=== PATIENT | female | born 1980 | race Caucasian/White ===

== ENCOUNTER 2017-06-19 21:37 | Observation (INO) | payer MEDICAID ==
[~2017-06-19] VITALS: Ht 157.5 cm; Wt 91.7 kg
[~2017-06-19 21:37] MED LIST: AMBIEN10 MG PO; AMBIEN5 M1 PO; AMOXICILLIN; ASPIR 8181 MG PO; ATARAX25 MG PO; ATARAX50 MG PO; ATIVAN0.5 MG PO; ATIVAN1 M2 PO; ATIVAN1 MG PO; B-1100 MG PO; BACITRACIN28.4 G1 TP; BACTRIM DS TABL1 TAB PO; BACTRIM DS1 TA1 PO; BACTRIM1 TAB PO; BENADRYL25 MG/TA1 PO; BENTYL10 MG PO; CARAFATE1 G PO; CATAPRES0.1 MG PO; CELEXA20 MG PO; CHLORHEXIDINE 4% TOP; CIPRO250 M2 PO; CLONIDINE HCL0.1 MG PO; COLACE100 MG PO; CORTISPORIN EAR10 M LEFT EAR; CVS STOOL SOFTE PO; CYCLOBENZAPRINE10 M1 PO; CYMBALTA30 MG PO; DICLOFENAC SODI75 M2 PO; DILAUDID2 MG PO; DILAUDID4 MG PO; DULOXETINE HCL30 M1 PO; DURAGESIC1 PATCH .7 TOP; EFFEXOR75 MG PO; ELTA TP; ERGOCALCIF50000 UNIT PO; EUCERIN CREME60 GM TP; FEOSOL1 TAB PO; FLEXERIL10 MG PO; FLEXERIL5 MG PO; FOLIC ACID1 MG PO; HALDOL0.5 MG/TAB PO; HALDOL1 MG/TA1 PO; HYDROCODON-ACE1 EA17 PO; HYDROCODONE/APA1 TA PO; HYDROCODONE/APA1 TAB PO; HYDROCORTISON28.4 G2 TP; HYDROXYZINE; HYDROXYZINE HCL25 MG PO; IBUPROFEN600 M1 PO; IBUPROFEN800 MG PO; IRON SUPPLEMEN325 MG PO; LAMICTAL100 M2 PO; LAMICTAL200 M2 PO; LIBRIUM25 MG PO; LITHIUM; LITHIUM CARBON300 MG PO; LITHIUM CARBON450 MG PO; LITHIUM CI8 MEQ/5 ML PO; LITHIUM CITRATE PO; LITHIUM PO; LORTAB 10/500 T1 TAB PO; LORTAB 10/5001 EA PO; MACROBID 100 M100 M1 PO; MAG-AL PLUS XS30 ML PO; MAGIC MOUTHWAS; MAGIC MOUTHWASH; MINIPRESS1 MG PO; MIRALAX17 G1 PO; MIRALAX17 GM PO; MULTI-VITAMIN1 EAC1 PO; MULTIVITAMIN W/1 CAP PO; NEURONTIN100 MG PO; NEURONTIN300 M1 PO; NEURONTIN300 MG PO; NEURONTIN600 MG PO; NEXIUM20 MG PO; NICODERM21 MG/PATC TD; NO MEDICATIONS; NORCO 10/325 TA1 TAB PO; NORCO 10/3251 TA1 PO; NORCO 10/3251 TAB PO; NORCO 5-325 TA1 EACH PO; NORCO 5/325 TAB1 TAB PO; NORCO 5/3251 TAB NG; NORCO 5/3251 TAB PO; OMEPRAZOLE20 M2 PO; OMEPRAZOLE20 M3 PO; OMEPRAZOLE40 MG PO; OXYCODONE HCL5 MG PO; OXYCONTIN; PAXIL20 M1 PO; PAXIL40 M1 PO; PEPCID20 MG PO; PERCOCET 5-3251 EACH PO; PERCOCET 5/3251 TAB PO; PHENERGAN LIQUID PO; PHENERGAN PR; PHENERGAN12.5 MG PO; PHENERGAN25 M1 PO; PHENERGAN25 M2 RC; PHENERGAN25 M4 RC; PHENERGAN25 MG PO; PHENERGAN25 MG/SUP1 PR; PHENERGAN25 MG/SUPP RC; PRAZOSIN HCL2 M2 PO; PRENATAL1 EACH PO; PRILOSEC40 MG PO; PROMETHAZI6.25 MG/5 PO; PROMETHAZINE HC25 M3 PO; PROMETHAZINE25 MG PO; PROTONIX40 MG PO; PROZAC40 MG PO; REMERON15 MG PO; SENOKOT8.6 MG PO; SEROQUEL XR50 MG/TAB PO; SEROQUEL100 MG PO; SEROQUEL200 M1 PO; SEROQUEL25 MG PO; SOMA350 MG PO; SULFAMYLON SOL250 M1 EXT; SULFAMYLON50 G/PKT TP; SUP PR; TRAZODONE HCL100 M1 PO; TRAZODONE HCL50 MG PO; TYLENOL325 MG PO; VALIUM5 MG PO; VITAMIN D50000 UNIT PO; ZANTAC150 MG PO; ZEGERID 40 MG P1 PKT PO; ZOFRAN4 M2 PO; [UNRECOGNIZED DRUG - OTHER] PO; [UNRECOGNIZED DRUG - REMARK]
[2017-06-19 22:17] LABS: URINE APPEARANCE CLOUDY; URINE BILIRUBIN NEGATIVE (NEG); URINE BLOOD LARGE (NEG); URINE COLOR YELLOW; URINE GLUCOSE (UA) NEGATIVE (NEG); URINE KETONE NEGATIVE (NEG); URINE LEUKOCYTE ESTERASE POSITIVE (NEG); URINE NITRITE NEGATIVE (NEG); URINE PROTEIN LARGE (NEG); URINE SPECIFIC GRAVITY 1.015 (1.003-1.030)
[2017-06-19 22:23] LABS: URINE RBC 80-100 /[HPF] (0-5)
[2017-06-19 22:24] LABS: URINE WBC 20-30 /[HPF] (0-5)
[2017-06-19 22:30] LABS: BASO % 0.2 % (0-2); EOS % 3.4 % (0-7); EOSINOPHIL ABSOLUTE COUNT 0.3 tho/cmm (0.0-0.7); HCT-HEMATOCRIT 41.7 % (34.0-49.0); HGB-HEMOGLOBIN 14.2 gm/dl (12.0-15.5); IMMATURE GRANULOCYTES ABSOLUTE 0.01 tho/cmm (0-0.03); IMMATURE GRANULOCYTES PERCENT 0.1 % (0-0.3); LYMPH % 30.4 % (20-45); LYMPH ABSOLUTE COUNT 2.8 tho/cmm (0.8-4.5); MCH (MEAN CORPUSCULAR HGB) 30.7 pg (28.0-32.0); MCHC MEAN CORPUSCULAR HGB CONC 34.1 % (32.0-36.0); MCV (MEAN CELL VOLUME) 90.1 fl (82.0-96.0); MEAN PLATELET VOLUME 9.7 cmc (9.4-12.4); MONO % 6.7 % (0-12); MONOCYTE ABSOLUTE COUNT 0.6 tho/cmm (0.0-1.2); NEUTROPHIL ABSOLUTE COUNT 5.4 tho/cmm (1.6-8.0); NEUTROPHIL-AUTOMATED 5.4 tho/cmm (1.6-8.0); NEUTROPHILS % 59.2 % (40-80); PLATELET COUNT 224 tho/cmm (150-450); RED BLOOD COUNT 4.63 mil/cmm (4.00-5.20); RED CELL DISTRIBUTION WIDTH 13.5 % (12.4-16.4); WHITE BLOOD COUNT 9.1 tho/cmm (4.0-10.0)
[2017-06-19 22:39] LABS: PREGNANCY-SERUM NEGATIVE (NEGATIVE)
[2017-06-19 22:42] LABS: ANION GAP 10 mmol/L (0-20); BLOOD UREA NITROGEN 23 mg/dl (6-24); CALCIUM 9.1 mg/dl (8.5-10.5); CARBON DIOXIDE-VENOUS 25 mmol/L (22-32); CHLORIDE 106 mmol/l (96-110); CREATININE 1.61 mg/dl (0.50-1.10); GLUCOSE 110 mg/dL (70-110); LIPASE 254 U/L (73-393); SODIUM 137 mmol/L (135-145); eGFR VALUE FOR BLACK 47 mL/Min
[2017-06-19 22:43] LABS: POTASSIUM 4.1 mmol/L (3.7-5.1)
[2017-06-20] MEDS ORDERED: HYDROCODON-ACE1 EA16 PO (01:54)
[2017-06-20 05:25] LABS: BASO % 0.1 % (0-2); EOS % 3.7 % (0-7); EOSINOPHIL ABSOLUTE COUNT 0.3 tho/cmm (0.0-0.7); HCT-HEMATOCRIT 39.4 % (34.0-49.0); HGB-HEMOGLOBIN 13.1 gm/dl (12.0-15.5); IMMATURE GRANULOCYTES ABSOLUTE 0.03 tho/cmm (0-0.03); IMMATURE GRANULOCYTES PERCENT 0.4 % (0-0.3); LYMPH % 28.3 % (20-45); LYMPH ABSOLUTE COUNT 2.2 tho/cmm (0.8-4.5); MCH (MEAN CORPUSCULAR HGB) 30.2 pg (28.0-32.0); MCHC MEAN CORPUSCULAR HGB CONC 33.2 % (32.0-36.0); MCV (MEAN CELL VOLUME) 90.8 fl (82.0-96.0); MEAN PLATELET VOLUME 9.9 cmc (9.4-12.4); MONO % 6.6 % (0-12); MONOCYTE ABSOLUTE COUNT 0.5 tho/cmm (0.0-1.2); NEUTROPHIL ABSOLUTE COUNT 4.8 tho/cmm (1.6-8.0); NEUTROPHIL-AUTOMATED 4.8 tho/cmm (1.6-8.0); NEUTROPHILS % 60.9 % (40-80); PLATELET COUNT 221 tho/cmm (150-450); RED BLOOD COUNT 4.34 mil/cmm (4.00-5.20); RED CELL DISTRIBUTION WIDTH 13.5 % (12.4-16.4); WHITE BLOOD COUNT 7.9 tho/cmm (4.0-10.0)
[2017-06-20 05:43] LABS: ANION GAP 13 mmol/L (0-20); BLOOD UREA NITROGEN 25 mg/dl (6-24); CALCIUM 7.9 mg/dl (8.5-10.5); CARBON DIOXIDE-VENOUS 22 mmol/L (22-32); CHLORIDE 112 mmol/l (96-110); CREATININE 1.59 mg/dl (0.50-1.10); GLUCOSE 94 mg/dL (70-110); SODIUM 142 mmol/L (135-145); eGFR VALUE FOR BLACK 48 mL/Min
[2017-06-21 16:57] LABS: ANION GAP 11 mmol/L (0-20); BLOOD UREA NITROGEN 21 mg/dl (6-24); CALCIUM 8.1 mg/dl (8.5-10.5); CARBON DIOXIDE-VENOUS 20 mmol/L (22-32); CHLORIDE 113 mmol/l (96-110); CREATININE 1.48 mg/dl (0.50-1.10); GLUCOSE 106 mg/dL (70-110); SODIUM 139 mmol/L (135-145); eGFR VALUE FOR BLACK 52 mL/Min
[2017-06-21] MEDS ORDERED: CIPRO500 M2 PO (17:01)
[2017-06-21 17:03] LABS: POTASSIUM 4.6 mmol/L (3.7-5.1)
== END 2017-06-21 17:45 ==
LOC: EDMED 21:37 → CAR1 23:58 → EMR2 23:58 → CAR1 06-20 01:10 → ORW 06-21 11:52 → PACU 06-21 14:26 → CAR1 06-21 14:50
PROVIDERS: Emergency Medicine; Hospitalist; Registered Nurse; ADMIT Internal Medicine
PROC: 0TF68ZZ Fragmentation in Right Ureter, Via Natural or Artificial Opening Endoscopic (ICD-10-PCS; principal; 2017-06-21)
PROC: 0TF38ZZ Fragmentation in Right Kidney Pelvis, Via Natural or Artificial Opening Endoscopic (ICD-10-PCS; 2017-06-21)
PROC: 0T768DZ Dilation of Right Ureter with Intraluminal Device, Via Natural or Artificial Opening Endoscopic (ICD-10-PCS; 2017-06-21)
DX: N13.2 Hydronephrosis with renal and ureteral calculous obstruction (principal); F11.20 Opioid dependence, uncomplicated; F41.8 Other specified anxiety disorders; N17.9 Acute kidney failure, unspecified; I83.90 Asymptomatic varicose veins of unspecified lower extremity; F17.210 Nicotine dependence, cigarettes, uncomplicated; M19.90 Unspecified osteoarthritis, unspecified site; G47.00 Insomnia, unspecified; K21.9 Gastro-esophageal reflux disease without esophagitis; R11.2 Nausea with vomiting, unspecified; Z79.2 Long term (current) use of antibiotics; Z79.899 Other long term (current) drug therapy; Z88.1 Allergy status to other antibiotic agents; Z88.5 Allergy status to narcotic agent; Z88.8 Allergy status to other drugs, medicaments and biological substances; Z91.048 Other nonmedicinal substance allergy status
CPT/HCPCS: C1769; C2617; J1170; J2060; J2250; J2405; J3010; J7030; Q9967